=== PATIENT | male | born 1995 | race Caucasian/White ===

== ENCOUNTER 2018-11-04 12:09 | Emergency (ER) | payer OTHER ==
[~2018-11-04] VITALS: Ht 180.3 cm; Wt 81.4 kg
[2018-11-04 12:40] VITALS: BP 132/72; PULSE 76; RESP 18; Ht 180.3 cm; Wt 81.4 kg
[2018-11-04] MEDS ORDERED: DIPHTH/TET/ACEL PERTUSS (ADULT) 0.5 ML VIAL IM* ONE (14:30)
[2018-11-04] MEDS ORDERED: BACITRACIN 0.9 GM OINT TOP ONE (14:30)
--- NOTE | 2018-11-04 14:38 | ERD ---
ER Documentation Chief Complaint Chief Complaint laceration cut with glass HPI 23-year-old male presents with complaint of laceration to the dorsal aspect of right hand and ventral aspect of his right wrist. Patient states he incurred the injury while breaking the window to his home since he got locked out. Patient states that the glass broke and cut him. States he is not sure if he is up-to-date on his tetanus. Patient denies any numbness, weakness, lightheadedness, impaired ROM, or foreign bodies in wound. ROS All systems reviewed and are negative except as per history of present illness. Medications Home Meds Active Scripts Hydrocodone/Acetaminophen (Stephan 5-325 Tablet) 1 Each Tablet, 1 TAB PO Q6H PRN for PAIN, #7 TAB Prov:ALBINO MEYERS 11/04/18 Allergies Allergies: Coded Allergies: morphine (Unverified Allergy, Unknown, swelling, 11/04/18) FmHx Family History: No diabetes, No coronary disease, No other Physical Exam Vitals Physical Exam Const: No acute distress Head: Atraumatic Eyes: Normal Conjunctiva ENT: Normal External Ears, Nose and Mouth. Neck: Full range of motion. No meningismus. Resp: Clear to auscultation bilaterally Cardio: Regular rate and rhythm, no murmurs Abd: Soft, non tender, non distended. Normal bowel sounds Skin: Approximately 1 cm laceration noted to the dorsal aspect of right hand. Approximately 1 cm partial-thickness laceration noted to the ventral aspect of right wrist. There are no foreign bodies noted in either laceration. Bleeding is stopped. Back: No midline or flank tenderness Ext: There is full range of motion of all digits and wrist. Sensation in all digits and wrist is intact. All pulses are intact. Neur: Awake and alert Psych: Normal Mood and Affect Results 24 hrs Current Medications Medications Dose Sig/Yessy Start Time Status Last (Trade) Ordered Route PRN Stop Time Admin Dose Reason Admin Diphtheria/ 0.5 ml ONCE ONCE 11/04/18 DC 11/04/18 Tetanus/Acell IM* 14:30 11/04/18 14:50 Pertussis 14:31 (Adacel) Bacitracin 1 applic ONCE ONCE 11/04/18 DC (Bacitracin TOP 14:30 11/04/18 Oint (Ud)) 14:31 Procedures/MDM Laceration Repair by me: Anesthesia: 1% lidocaine locally Location: Dorsal aspect of right hand, ventral aspect of right wrist Tendon/Joint/Nerves: No injury Foreign body: None detected after copious irrigation and exploration Technique: Simple Interrupted Sutures Complexity: No subcutaneous sutures/mucosal repair/edge excision Post Closure Length: Both approximately 1 cm MDM: x rays of hand and wrist were taken to r/o foreign body. Results WNL. All sensation range of motion intact, there is no evidence of neurovascular injury at this time. Patient was unsure as to his tetanus status and Tdap was given in the ER. Patient was given bacitracin and advised to place on twice a day. Patient advised to return to ER in 40 hours for wound check. Patient's bleeding was easily controlled in the department and there is no indication of anemia. No evidence of compartment syndrome, neurologic injury, vascular injury, open joint, tendon laceration, or foreign body. Patient is appropriate for outpatient follow up. 48 hour wound check. Scar minimization instructions given. At this time, patient is stable for discharge and outpatient management. I have instructed the patient to follow-up with his/her primary care physician in 1-2 days. I have discussed with the patient the possibility of needing to see a specialist for further workup and imaging studies if symptoms persist. I have instructed the patient to promptly return to the ER for any new or worsening symptoms including but not limited to increased pain, fever, nausea, vomiting, weakness or LOC. The patient and/or family expressed understanding of and agreement with this plan. All questions were answered. Home care instructions were provided. [Communication with patient both during the exam and instructions for discharge were performed with using a butter liquefier . Patient gave verbal confirmation to the practitioner, through the butter liquefier, that they understood everything that was being said to them.] DISCLAIMER: Inadvertent spelling and grammatical errors are likely due to EHR/dictation software use and do not reflect on the overall quality of patient care. Also, please note that the electronic time recorded on this note does not necessarily reflect the actual time of the patient encounter. Departure Diagnosis: Primary Impression: Laceration Condition: Stable ALBINO MEYERS Nov 04, 2018 14:38
[2018-11-04] MEDS ORDERED: HYDR-4011 PO (16:36)
== END 2018-11-04 16:47 | disposition home or self-care (01) ==
LOC: FTE 12:09
DX: S61.511A Laceration without foreign body of right wrist, initial encounter (principal); S61.411A Laceration without foreign body of right hand, initial encounter; W25.XXXA Contact with sharp glass, initial encounter; Y92.009 Unspecified place in unspecified non-institutional (private) residence as the place of occurrence of the external cause; Z23 Encounter for immunization
CPT/HCPCS: 90471; 90715

== ENCOUNTER 2019-02-22 13:14 | Emergency (ER) | payer OTHER ==
[~2019-02-22] VITALS: Ht 180.3 cm; Wt 83.5 kg
[~2019-02-22 13:14] MED LIST: CEPH-443 PO; HYDR-4011 PO; IBUP-1561 PO; NAPR-985 PO; SULF1TAB31 PO
[2019-02-22 13:26] VITALS: BP 156/65; PULSE 94; RESP 16; Ht 180.3 cm; Wt 83.5 kg
== END 2019-02-22 16:05 | disposition left against medical advice (07) ==
LOC: FTE 13:14
DX: Z48.01 Encounter for change or removal of surgical wound dressing (principal)
CPT/HCPCS: 99282